=== PATIENT | female | born 1975 | race Caucasian/White ===

== ENCOUNTER 2020-09-25 21:23 | Emergency (ER) | payer OTHER, SELFPAY ==
[2020-09-25 21:30] VITALS: BP 127/77; PULSE 63; RESP 17; TEMP 36.7; O2SAT 98; BMI 23.6
--- NOTE | 2020-09-25 21:38 | DI.RAD.S_ITS ---
PROCEDURE: XR ELBOW LT MIN 3V INDICATIONS: Fall onto left arm with pain TECHNIQUE: 3 views of the elbow were acquired. COMPARISON: None. FINDINGS: Bones: Displaced fracture involving the anterior margin of the radial head. Displaced fracture involving the humeral capitellum. Soft tissues: Large joint effusion. No suspicious soft tissue calcifications. IMPRESSION: 1. Fracture of the humeral capitellum. Two. Fracture of the radial head. Dictated by: Cheri Garza MD, PhD on 09/26/2020 at 7:39 Approved by: Cheri Garza MD, PhD on 09/26/2020 at 7:42
--- NOTE | 2020-09-25 21:40 | DI.RAD.S_ITS ---
PROCEDURE: XR FOREARM LT 2V INDICATIONS: fall onto left arm with increased main TECHNIQUE: 2 views of the forearm were acquired. COMPARISON: None. FINDINGS: Bones: Displaced radial head fracture and humeral capitellum fracture. No suspicious bony lesions. Soft tissues: No suspicious soft tissue calcifications or masses. IMPRESSION: Left radial head fracture and left humeral capitellum fracture. Dictated by: Cheri Garza MD, PhD on 09/26/2020 at 7:42 Approved by: Cheri Garza MD, PhD on 09/26/2020 at 7:43
--- NOTE | 2020-09-25 22:24 | ED_ITS ---
HPI - Extremity Injury (Upper) General Chief Complaint: Extremity Injury, Upper Stated Complaint: left arm injury, fall from step stool Time Seen by Provider: 09/25/20 22:06 Source: patient and family (mother at bedside) Mode of arrival: Ambulatory Limitations: no limitations History of Present Illness HPI narrative: This is a 45-year-old female comes to the emergency department with a fall from a step stool. Patient states she fell onto her elbow. She describes mechanical fall. She states she is not sure if she lost consciousness she did feel stunned from moment. She had pretty significant pain and had to bean picker her arm with her other arm when she got up. She felt very short of breath initially right after she fell. She denies any headache, she has some mild neck pain but nothing midline, she denies any back pain. She denies any numbness or tingling currently. She did describe some tingling earlier in her left hand. Patient denies any chest pain, no shortness of breath. She denies any nausea or vomiting. No issues with bowel movements or urination. She denies any weakness in her other extremities. Continues to have pain in her right elbow radiating down her arm towards her wrist. She was splinted on [place] with the same splint. Related Data Allergies Allergy/AdvReac Type Severity Reaction Status Date / Time No Known Drug Allergies Allergy Verified 09/26/20 00:10 Review of Systems Review of Systems ROS Unobtainable: All systems reviewed & are unremarkable except as noted in HPI and below Patient History Social History Smoking Status: Never smoker Smoking Status: Never smoker Substance Use Type: does not use Exam Narrative Exam Narrative: GEN: C Patient appears in mild distress. HEAD: No evidence of trauma, no raccoon/Jose sign. NECK: Nontender, painless range of motion, trachea midline Negative for Nexus criteria, there is no mid line tenderness, distracting injury, altered mental status, neuro deficit, recent EtOH. EYES: PERRLA, EOMI ENT: External inspection normal, trachea is midline, airway is normal and with normal occlusion, No bony tenderness RESP: Chest is nontender and has symmetric movement, no ecchymosis, breath sounds are normal no crackles, wheezes or rales CVS: Heart sounds are normal, no murmur noted, No JVD. ABG/GI: Nontender, soft, normal bowel sounds, no distention, no organomegaly, pelvic rock is negative NEURO: Oriented AOx3, neuro is grossly intact, sensation and motor is normal all 4 extremities moving, cranial nerves II through XII are intact, GCS is 15 PSYCH: Normal mood and affect SKIN: Intact, warm and dry, no crepitus and without decubitus BACK: No CVA tenderness, no vertebral tenderness, no step-off's, no crepitus EXT: Right elbow and forearm are tender, patient is in ROCHELLE splint on arrival. Patient has sensation in all 5 fingers of full range of motion all 5 fingers increasing pain at the right elbow. 2+ pulses bilaterally. Normal sensation in all 5 fingers. Normal range of motion in right upper extremity and patient is ambulatory Initial Vital Signs Initial Vital Signs: Vital Signs Temperature 98.0 F 09/25/20 21:30 Pulse Rate 63 09/25/20 21:30 Respiratory Rate 17 09/25/20 21:30 Blood Pressure 127/77 09/25/20 21:30 Pulse Oximetry 98 09/25/20 21:30 Course Orders Ordered: ED Orders 09/25/20 21:38 XR elbow LT min 3V Stat 09/25/20 21:40 XR forearm LT 2V Stat 09/25/20 22:50 CT UE LT wo con Stat 09/26/20 02:06 COVID19 Stat Discontinued Medications Acetaminophen (Acetaminophen 325 Mg Tablet) 975 mg PO NOW ONE Stop: 09/25/20 22:25 Last Admin: 09/25/20 22:29 Dose: 975 mg Documented by: NIRAJ Hydrocodone Bitart/Acetaminophen (Hydrocodone/Acet 5/325 Prepack) 1 bottle MISC SEEINSTR ONE Stop: 09/26/20 02:43 Last Admin: 09/26/20 02:55 Dose: 1 bottle Documented by: NIRAJ Consultations Consultation #1: Dr. Rayo for orthopedic surgery, images reviewed. Recommends getting CT scan for better imaging and call back when done for review. Dr. Rayo called back after CT images obtained and recommends follow up with orthopedic surgery at [facility] for treatment and repair. Time: 22:47 Consultation #2: [facility], DR. Lesley Puga accepts for transfer. Vital Signs Vital signs: Vital Signs - 8 hr 09/26/20 02:19 Pulse Rate 62 Respiratory Rate 16 Blood Pressure 108/66 Pulse Oximetry 97 MDM - Extremity Injury (Upper) Lab Data Attestation: I reviewed the patient's lab results. Labs: Lab Results 09/26/20 Range/Units 02:06 SARS-CoV-2 (PCR) Negative (Negative) Imaging Data Extremity x-ray #1: Radiologist's Impression: Forearm shows an acute displaced fracture radial head. No evidence of acute fracture elsewhere negative for dislocation the radiocarpal or elbow joint. Extremity x-ray #2: Radiologist's Impression: Elbow x-ray shows acute displaced fracture radial. No evidence acute fracture elsewhere, negative for dislocation of elbow joint. CT left upper extremity: Radiologist's Impression: Fracture of the capitellum, lateral epicondyle, radial head and coronoid process. Patient has comminuted fracture capitellum with fracture lines extending lateral epicondyle. Capitellum is angulated superiorly. There is impaction of radial head on the capitellum with the radial head fracture with 1 cm fracture fragment. Capitellum is also impact from the coronoid process inches fraction with a 0.6 cm fracture fragment. No dislocation no osseous lesion. Normal bone mineralization. Lipohemarthrosis. No fluid collection. Muscles are normal in attenuation in bulk. Unremarkable limited evaluation the vascular and tendons. [facility] Narrative Medical decision making narrative: This is a 45-year-old female with mechanical fall who comes via fairy to our facility. X-ray imaging is concerning for fracture of the radial head but potentially additional fractures. Was reviewed with Orthopedic surgery who recommend CT imaging this was reviewed after was obtained and they recommend transfer to [facility]. Images were pushed. And patient was accepted by Dr. Lesley Puga. Patient ROCHELLE splint was replaced in the department and is NVI afterwards with splint. She initially defers any pain medication until just prior to transfer. Patient prefers to go via private auto at this time and defers transfer via ambulance. Patient NVI prior to discharge. Given po norco prepack. Discharge Plan Departure Patient Disposition: Home Clinical Impression: Elbow fracture, left, Fracture of lateral epicondyle of humerus Closed fracture of radial head Qualifiers: Encounter type: initial encounter Fracture alignment: displaced Laterality: left Qualified Code(s): S52.122A - Displaced fracture of head of left radius, initial encounter for closed fracture Instructions: DI for Elbow Fracture Activity Restrictions/Additional Instructions: Go directly to [facility] Emergency Department. Let them know that you were seen here at [facility] and have been asked to come to [facility] ER for transfer. Dr. Lesley Puga accepts for transfer. Take paperwork with you, your images have been pushed to [facility] already. Splint Care: Keep splint clean and dry. Elevated affected body part to decrease swelling. OK to use ice pack on the affected body part. Use for 15-20 minutes each time, for 5-6x per day. Referrals: Molly Schmidt PA-C [Primary Care Provider] - Sofia Rayo MD [Physician] -
[2020-09-25] MEDS: ACETAMINOPHEN 325 MG TABLET 975 MG PO (22:29)
--- NOTE | 2020-09-25 22:50 | DI.CT.S_ITS ---
PROCEDURE: CT UE LT WO CON INDICATIONS: request by ortho. right elbow radial and ? humeral fx TECHNIQUE: Noncontrast 1-1.5 mm axial sections were acquired through the elbow joint, with coronal and sagittal reformats. COMPARISON: [facility], CR, XR ELBOW LT MIN 3V, 09/25/2020, 21:44. FINDINGS: Image quality: Degraded by patient motion artifact and poor signal to noise. Bones: Comminuted, displaced fracture involving the capitellum of the distal left humerus. Anteriorly displaced avulsion fracture of the left ulnar coronoid process. Nondisplaced fracture through the base of the olecranon process (series 6, images 67-72). Anteriorly displaced fracture of the anterior margin of the left radial head. Soft tissues: Circumferential soft tissue swelling noted. Large elbow joint effusion noted. IMPRESSION: 1. Comminuted, displaced fracture involving the left humerus capitellum. 2. Displaced fracture involving the radial head. 3. Nondisplaced fracture involving the base of the ulnar olecranon process. 4. Small avulsion fracture of the ulnar coronoid process. Dictated by: Cheri Garza MD, PhD on 09/26/2020 at 7:34 Approved by: Cheri Garza MD, PhD on 09/26/2020 at 7:39
[2020-09-26 02:19] VITALS: BP 108/66; PULSE 62; RESP 16; O2SAT 97
[2020-09-26 02:33] LABS: COVID19 -Nasal RAPID Negative (Negative)
[2020-09-26] MEDS: HYDROCODONE/ACET 5/325 PREPACK 1 BOTTLE MISC (02:55)
== END 2020-09-26 03:00 | disposition home or self-care (01) ==
PROVIDERS: Emergency Provider Emergency Medicine; PCP Physician Assistant
DX: S42.402A Unspecified fracture of lower end of left humerus, initial encounter for closed fracture (principal); S52.122A Displaced fracture of head of left radius, initial encounter for closed fracture; S42.433 Displaced fracture (avulsion) of lateral epicondyle of unspecified humerus; W19.XXXA Unspecified fall, initial encounter; Z20.822 Contact with and (suspected) exposure to COVID-19
CPT/HCPCS: 29105; 73080; 73090; 73200; 87635; 99284; C9803

== ENCOUNTER → 2021-02-02 11:26 | Outpatient (CLI) | payer OTHER, SELFPAY ==
[2021-02-02 21:14] LABS: COVID19 - ORCAS (NP or Nasal) Negative (Negative)
== END ==
PROVIDERS: PCP Physician Assistant; Visit Provider Family Medicine
DX: Z20.822 Contact with and (suspected) exposure to COVID-19 (principal)
CPT/HCPCS: U0003

== ENCOUNTER → 2021-02-11 12:45 | Outpatient (CLI) | payer OTHER, MEDICAID, SELFPAY ==
[2021-02-11 20:28] LABS: COVID19 - ORCAS (NP or Nasal) Negative (Negative)
== END ==
PROVIDERS: PCP Physician Assistant; Visit Provider Family Medicine
DX: Z20.822 Contact with and (suspected) exposure to COVID-19 (principal)
CPT/HCPCS: U0003

== ENCOUNTER → 2021-02-18 12:08 | Outpatient (CLI) | payer OTHER, MEDICAID, SELFPAY ==
[2021-02-18 20:00] LABS: COVID19 - ORCAS (NP or Nasal) Negative (Negative)
== END ==
PROVIDERS: PCP Physician Assistant; Visit Provider Family Medicine
DX: J06.9 Acute upper respiratory infection, unspecified (principal); Z20.822 Contact with and (suspected) exposure to COVID-19
CPT/HCPCS: U0003

== ENCOUNTER → 2022-02-27 09:32 | Outpatient (CLI) | payer OTHER, MEDICAID, SELFPAY ==
[2022-02-27 20:00] LABS: Alanine Aminotransferase 12 IU/L (<35); Albumin 3.9 g/dL (3.5-5.0); Albumin Globulin Ratio 1.4 (1.0-2.8); Alkaline Phosphatase 66 U/L (38-126); Aspartate Aminotransferase 23 IU/L (14-36); BUN Creatinine Ratio 16.9 (6-22); Bilirubin Total 0.5 mg/dL (0.2-1.3); Blood Urea Nitrogen 10 mg/dL (7-17); Calcium 9.1 mg/dL (8.4-10.2); Carbon Dioxide 26 mmol/L (22-32); Chloride 105 mmol/L (98-107); Cholesterol 196 mg/dL (140-199); Estimated Glomerular Filt Rate > 60 mL/min (>60); Globulin 2.8 g/dL (1.7-4.1); Glucose 95 mg/dL (70-100); HDL Cholesterol 41 mg/dL (40-60); HEMOLYSIS < 15 (0-50); LDL Cholesterol Calculated 139 mg/dL (<100); Potassium 4.3 mmol/L (3.4-5.1); Sodium 138 mmol/L (137-145); Total Protein 6.7 g/dL (6.3-8.2); Triglycerides 80 mg/dL (35-150)
[2022-02-27 20:03] LABS: Add Manual Diff / Slide Review NO; Basophils Absolute Auto 0 /uL (0-100); Basophils Percent Auto 0.4 % (0-2); Eosinophils Absolute Auto 100 /uL (0-450); Eosinophils Percent Auto 1.7 % (2-4); Hematocrit 34.6 % (36-46); Hemoglobin 12.2 g/dL (12.0-16.0); Lymphocytes Absolute Auto 2000 /uL (1100-4500); Lymphocytes Percent Auto 41.9 % (25-40); Mean Corpuscular HGB Conc 35.2 % (30-36); Mean Corpuscular Volume 90.8 fL (80-100); Monocytes Absolute Auto 400 /uL (0-900); Monocytes Percent Auto 7.8 % (3-14); Neutrophils Absolute Auto 2300 /uL (1500-7000); Neutrophils Percent Auto 48.2 % (50-75); Platelet Count 326 X10^3/uL (150-400); Red Blood Cell Count 3.81 X10^6/uL (4.0-5.2); Red Cell Distribution Width 12.5 % (11.6-14.8); White Blood Cell Count 4.9 X10^3/uL (4.5-11.0)
[2022-02-27 20:17] LABS: Follicle Stimulating Hormone 6.84 mIU/mL; Luteinizing Hormone 9.37 mIU/mL
[2022-02-27 20:45] LABS: TSH w/ Reflex to FT4 2.41 uIU/mL (0.47-4.68)
== END ==
PROVIDERS: PCP Physician Assistant Medical; Visit Provider Physician Assistant Medical
DX: F31.70 Bipolar disorder, currently in remission, most recent episode unspecified (principal); R63.5 Abnormal weight gain
CPT/HCPCS: 80053; 80061; 83001; 83002; 84443; 84481; 85025

== ENCOUNTER → 2025-01-30 11:05 | Outpatient (CLI) | payer OTHER, MEDICAID, SELFPAY ==
[2025-01-30 16:26] LABS: Follicle Stimulating Hormone 16.3 mIU/mL; Luteinizing Hormone 19.9 mIU/mL
== END ==
PROVIDERS: PCP Physician Assistant Medical; Referring Provider Physician Assistant Medical; Visit Provider Physician Assistant Medical
DX: N95.1 Menopausal and female climacteric states (principal)
CPT/HCPCS: 36415; 82397; 83001; 83002

== ENCOUNTER → 2025-02-04 11:45 | Outpatient (CLI) | payer OTHER, MEDICAID, SELFPAY ==
[2025-02-04 12:00] LABS: Hematocrit 38.1 % (36-46); Hemoglobin 12.8 g/dL (12.0-16.0); Mean Corpuscular HGB Conc 33.7 % (30-36); Mean Corpuscular Hemoglobin 31.2 PG (26-34); Mean Corpuscular Volume 92.5 fL (80-100); Platelet Count 333 X10^3/uL (150-400)
[2025-02-04 12:28] LABS: Alanine Aminotransferase 19 IU/L (<35); Albumin 4.5 g/dL (3.5-5.0); Albumin Globulin Ratio 1.6 (1.0-2.8); Alkaline Phosphatase 98 U/L (38-126); Blood Urea Nitrogen 16 mg/dL (7-17); Calcium 9.6 mg/dL (8.4-10.2); Carbon Dioxide 25 mmol/L (22-32); Chloride 105 mmol/L (98-107); Cholesterol 275 mg/dL (140-199); Estimated Glomerular Filt Rate > 60 mL/min (>60); Globulin 2.9 g/dL (1.7-4.1); Glucose 80 mg/dL (70-99); HDL Cholesterol 63 mg/dL (40-60); HEMOLYSIS < 15 (0-50); Potassium 4.0 mmol/L (3.4-5.1); Sodium 138 mmol/L (137-145); Total Protein 7.4 g/dL (6.3-8.2); Triglycerides 227 mg/dL (35-150)
[2025-02-04 12:54] LABS: TSH w/ Reflex to FT4 2.25 uIU/mL (0.47-4.68)
== END ==
PROVIDERS: PCP Physician Assistant Medical; Referring Provider Physician Assistant Medical; Visit Provider Physician Assistant Medical
DX: Z12.31 Encounter for screening mammogram for malignant neoplasm of breast (principal); Z12.4 Encounter for screening for malignant neoplasm of cervix; Z11.51 Encounter for screening for human papillomavirus (HPV); Z13.6 Encounter for screening for cardiovascular disorders; Z13.29 Encounter for screening for other suspected endocrine disorder; Z13.1 Encounter for screening for diabetes mellitus; K57.92 Diverticulitis of intestine, part unspecified, without perforation or abscess without bleeding; D64.9 Anemia, unspecified
CPT/HCPCS: 36415; 80053; 80061; 84443; 85027

== ENCOUNTER → 2025-02-05 10:00 | Outpatient (CLI) | payer OTHER, SELFPAY | PROVIDERS: PCP Physician Assistant Medical; Visit Provider Physician Assistant Medical | DX: Z12.31 Encounter for screening mammogram for malignant neoplasm of breast (principal); Z12.4 Encounter for screening for malignant neoplasm of cervix; Z11.51 Encounter for screening for human papillomavirus (HPV); Z13.6 Encounter for screening for cardiovascular disorders; Z13.29 Encounter for screening for other suspected endocrine disorder; Z13.1 Encounter for screening for diabetes mellitus; D64.9 Anemia, unspecified; K57.92 Diverticulitis of intestine, part unspecified, without perforation or abscess without bleeding | CPT/HCPCS: 82274 ==

== ENCOUNTER → 2025-05-05 14:31 | Outpatient (CLI) | payer OTHER, SELFPAY ==
[2025-05-09 16:08] LABS: ANA Screen, IFA Positive (.)
== END ==
PROVIDERS: PCP Physician Assistant Medical; Visit Provider Physician Assistant Medical
DX: M25.50 Pain in unspecified joint (principal); M54.2 Cervicalgia; N95.1 Menopausal and female climacteric states
CPT/HCPCS: 85651; 86038; 86140; 86430

== ENCOUNTER → 2025-05-12 09:40 | Outpatient (CLI) | payer OTHER, SELFPAY ==
[2025-05-12 19:23] LABS: Cholesterol 256 mg/dL (140-199); HDL Cholesterol 53 mg/dL (40-60); Triglycerides 107 mg/dL (35-150)
== END ==
PROVIDERS: PCP Physician Assistant Medical; Visit Provider Physician Assistant Medical
DX: F41.9 Anxiety disorder, unspecified (principal); E78.00 Pure hypercholesterolemia, unspecified
CPT/HCPCS: 80061